=== PATIENT | female | born 1985 | race Caucasian/White ===

== ENCOUNTER 2017-01-30 19:16 | Emergency (ER) | payer OTHER ==
[~2017-01-30] VITALS: Ht 167.6 cm; Wt 49.8 kg
[~2017-01-30 19:16] MED LIST: METFORMIN HCL1000 M1 PO; MOXEZA3 ML RIGHT EYE; PERCOCET 5/31 TABLET PO; SYNTHROID88 MCG PO; ZOFRAN4 MG PO
[2017-01-30 20:06] VITALS: BP 141/83
== END 2017-01-30 20:06 | disposition home or self-care (01) ==
LOC: EME 19:16
PROC: 3E0234Z Introduction of Serum, Toxoid and Vaccine into Muscle, Percutaneous Approach (ICD-10-PCS; principal; 2017-01-30)
DX: S61.213A Laceration without foreign body of left middle finger without damage to nail, initial encounter (principal); W45.8XXA Other foreign body or object entering through skin, initial encounter; Z23 Encounter for immunization; E03.9 Hypothyroidism, unspecified
CPT/HCPCS: 99281; 99283